=== PATIENT | female | born 1965 | race Two or more races ===

== ENCOUNTER 2018-01-20 20:57 | Emergency (ER) | payer SELFPAY ==
[~2018-01-20] VITALS: Ht 162.6 cm; Wt 68.9 kg
--- NOTE | 2018-01-20 21:41 | PHYS DOC ---
Past Medical History Past Medical History: No Pertinent History, Diverticulitis Past Surgical History: Appendectomy Alcohol Use: None Drug Use: None Adult General Chief Complaint Chief Complaint: ABDOMINAL PAIN HPI HPI 52-year-old female presents to ER with complaints of left-sided abdominal pain which started on Sunday. Patient denies any nausea or vomiting. Patient states she had episode of diarrhea on Sunday with no additional episodes. Patient reports she has had good appetite. Patient denies any abdominal bloating. Patient's LMP was in October and states she has gone through menopause. Patient reports she has been urinating without symptoms. Patient denies any recent travel. Patient denies any chest pain, palpitations, or shortness of air. Review of Systems Review of Systems Constitutional: Denies fever or chills. Reports fatigue Eyes: Denies change in visual acuity, redness, or eye pain [] HENT: Denies nasal congestion or sore throat [] Respiratory: Denies cough or shortness of breath [] Cardiovascular: Denies chest pain or palpitations GI: Reports left side upper and lower abdominal pain. Denies nausea or vomiting. Reports good appetite. Reports episode diarrhea on Sunday : Denies dysuria or hematuria. Denies any other urinary symptoms Musculoskeletal: Denies back/neck/extremity pain Integument: Denies rash or skin lesions. Denies swelling Neurologic: Denies headache, focal weakness or sensory changes [] All other systems were reviewed and found to be within normal limits, except as documented in this note. Current Medications Current Medications Current Medications Medications (Trade) Dose Ordered Sig/Bryn Start Time Stop Time Status Last Admin Dose Admin Fentanyl Citrate (Fentanyl 2ml Vial) 50 mcg 1X ONCE 01/20/18 22:30 01/20/18 22:31 DC 01/20/18 22:24 50 MCG Info (CONTRAST GIVEN -- Rx MONITORING) 1 each PRN DAILY PRN 01/20/18 23:30 01/21/18 01:00 DC Iohexol (Omnipaque 300 Mg/ml) 75 ml 1X ONCE 01/20/18 23:45 01/20/18 23:46 DC 01/20/18 23:38 75 ML Sodium Chloride 1,000 ml @ 1,000 mls/hr 1X ONCE 01/20/18 22:30 01/20/18 23:29 DC 01/20/18 22:23 1,000 MLS/HR Allergies Allergies Allergies Coded Allergies Type Severity Reaction Last Updated Verified No Known Drug Allergies 03/04/15 No Physical Exam Physical Exam Constitutional: Well developed, well nourished, mild distress with pt holding lt side abd, non-toxic appearance. [] HENT: Normocephalic, atraumatic, bilateral ears normal,mucous membranes pink/dry , no oral exudates, nose normal. [] Eyes: PERRLA, conjunctiva normal, no discharge. [] Neck: Normal range of motion, no tenderness, supple, no gross adenopathy Cardiovascular:Heart rate regular rhythm, no murmur [] Lungs & Thorax: Bilateral breath sounds clear to auscultation. Resp. equal/ nonlabored. Abdomen: Bowel sounds normal, soft/nondistended, diffuse tenderness in lt side abd- upper and lower quads with no focal area , no masses, no pulsatile masses. [] Skin: Warm, dry, no erythema, no rash. [] Back: No tenderness, no CVA tenderness. [] Extremities: No tenderness, no cyanosis, no clubbing, ROM intact, no edema. [] Neurologic: Alert and oriented X 3, normal motor function, normal sensory function, no focal deficits noted. [] Psychologic: Affect normal, judgement normal, mood normal. [] Current Patient Data Vital Signs Vital Signs Date Time Temp Pulse Resp B/P (MAP) Pulse Ox O2 Delivery O2 Flow Rate FiO2 01/20/18 23:30 69 15 94/58 (70) 97 Room Air 01/20/18 21:00 98.9 98.9 Lab Values Laboratory Tests Test 01/20/18 21:20 01/20/18 21:25 White Blood Count 8.8 x10^3/uL (4.0-11.0) Red Blood Count 4.22 x10^6/uL (3.50-5.40) Hemoglobin 13.4 g/dL (12.0-15.5) Hematocrit 38.8 % (36.0-47.0) Mean Corpuscular Volume 92 fL (79-100) Mean Corpuscular Hemoglobin 32 pg (25-35) Mean Corpuscular Hemoglobin Concent 35 g/dL (31-37) Red Cell Distribution Width 13.2 % (11.5-14.5) Platelet Count 203 x10^3/uL (140-400) Neutrophils (%) (Auto) 58 % (31-73) Lymphocytes (%) (Auto) 30 % (24-48) Monocytes (%) (Auto) 9 % (0-9) Eosinophils (%) (Auto) 2 % (0-3) Basophils (%) (Auto) 1 % (0-3) Neutrophils # (Auto) 5.1 x10^3uL (1.8-7.7) Lymphocytes # (Auto) 2.6 x10^3/uL (1.0-4.8) Monocytes # (Auto) 0.8 x10^3/uL (0.0-1.1) Eosinophils # (Auto) 0.2 x10^3/uL (0.0-0.7) Basophils # (Auto) 0.1 x10^3/uL (0.0-0.2) Sodium Level 140 mmol/L (136-145) Potassium Level 3.3 mmol/L (3.5-5.1) L Chloride Level 105 mmol/L (98-107) Carbon Dioxide Level 26 mmol/L (21-32) Anion Gap 9 (6-14) Blood Urea Nitrogen 10 mg/dL (7-20) Creatinine 0.8 mg/dL (0.6-1.0) Estimated GFR (Cockcroft-Gault) 75.0 BUN/Creatinine Ratio 13 (6-20) Glucose Level 150 mg/dL (70-99) H Calcium Level 8.9 mg/dL (8.5-10.1) Magnesium Level 1.9 mg/dL (1.8-2.4) Total Bilirubin 0.6 mg/dL (0.2-1.0) Aspartate Amino Transferase (AST) 14 U/L (15-37) L Alanine Aminotransferase (ALT) 21 U/L (14-59) Alkaline Phosphatase 71 U/L (46-116) Total Protein 7.4 g/dL (6.4-8.2) Albumin 3.6 g/dL (3.4-5.0) Albumin/Globulin Ratio 0.9 (1.0-1.7) L Lipase 276 U/L (73-393) Urine Collection Type Unknown Urine Color Yellow Urine Clarity Clear Urine pH 7.5 Urine Specific Viola 1.010 Urine Protein Negative mg/dL (NEG-TRACE) Urine Glucose (UA) Negative mg/dL (NEG) Urine Ketones (Stick) Negative mg/dL (NEG) Urine Blood Negative (NEG) Urine Nitrite Negative (NEG) Urine Bilirubin Negative (NEG) Urine Urobilinogen Dipstick 1.0 mg/dL (0.2 mg/dL) Urine Leukocyte Esterase Moderate (NEG) Urine RBC 0 /HPF (0-2) Urine WBC 5-10 /HPF (0-4) Urine Squamous Epithelial Cells Many /LPF Urine Bacteria 0 /HPF (0-FEW) Urine Test Negative (NEG) Laboratory Tests 01/20/18 21:20 Laboratory Tests 01/20/18 21:20 Microbiology 01/20/18 Urine Culture - Final, Complete 01/20/18 Urine Culture Result 1 (ROBERTO) - Final, Complete Microbiology 01/20/18 Urine Culture - Final, Complete 01/20/18 Urine Culture Result 1 (ROBERTO) - Final, Complete EKG EKG [] Radiology/Procedures Radiology/Procedures INDICATION: left lower abdomen pain that started Sunday
75ml Omni 300 COMPARISON: March 04, 2015 TECHNIQUE: Axial CT images obtained through the abdomen and pelvis with contrast. One or more of the following individualized dose reduction techniques were utilized for this examination: 1. Automated exposure control; 2. Adjustment of the mA and/or kV according to patient size; 3. Use of iterative reconstruction technique. FINDINGS: Linear opacity left lung base could be atelectasis or scarring. Abdominal aorta not aneurysmal. No intrahepatic bile duct dilation. Gallbladder is contracted. No peripancreatic fluid collection. Spleen unremarkable. No hydronephrosis. Minimal urine within urinary bladder. Colonic diverticulosis. Wall thickening of descending colon with adjacent edema of the fat. No dilated loops of bowel suggest obstruction. Degenerative changes of spine. Pars defects L5. IMPRESSION: 1. Wall thickening of the descending colon with adjacent edema to the fat. Could be from diverticulitis but if the patient has not had a recent colonoscopy would consider obtaining a follow-up CT or colonoscopy after treatment to ensure this resolves to exclude neoplastic causes Electronically signed by: Adam Harmon MD (01/20/2018 11:58 PM) [facility] DICTATED and SIGNED BY: ADAM HARMON MD DATE: 01/20/18 3338 Course & Med Decision Making Course & Med Decision Making Pertinent Labs and Imaging studies reviewed. (See chart for details) 1225: Discussed test results with pt and her son- again translation phone was advised for communication and pt did not want to use phone and wanted her son to translate. Discussed again lab results NL with UA unremarkable. UCG was neg. CT results reported "wall thickening of the descending colon with adjacent edema to the fat. Could be from diverticulitis". When this was discussed pt reported that she had diverticulitis a couple months ago which she had not mentioned during ROS/past medical hx. She reports she has hydrocodone for pain at home. Discussed need for GI f/u for further eval/tx and possible colonoscopy. With pt's continued c/o lt side abd pain admission was offered- she is not wanting to be admitted with plans to f/u with her PCP. Will give Rxs for Cipro, Flagyl, and Bentyl. Education provided on s&s to return to ER for- advised pt if sxs worsen she should return. At time of discussion pt is in no visible distress/nontoxic in appearance reporting abd pain had improved with txs received. Discharge instructions discussed- will provide GI referral info on discharge paperwork. Dragon Disclaimer Dragon Disclaimer This electronic medical record was generated, in whole or in part, using a voice recognition dictation system. Departure Departure Impression: Primary Impression: Diverticulitis Additional Impression: Abdominal pain Disposition: 01 HOME, SELF-CARE Condition: STABLE Referrals: NO PCP (PCP) ORIN CAMARGO MD if symptoms persist this is an option for gastrointestinal follow-up Patient Instructions: Abdominal Pain, Diverticulitis Scripts Dicyclomine Hcl (DICYCLOMINE HCL) 10 Mg Capsule 10 MG PO QID, #12 CAP 0 Refills Prov: ALIA ORO APRN 01/21/18 Ciprofloxacin Hcl (CIPRO) 500 Mg Tablet 1 TAB PO BID, #14 TAB 0 Refills Prov: ALIA ORO APRN 01/21/18 Metronidazole (FLAGYL) 500 Mg Tablet 500 MG PO BID for 7 Days, #14 TAB 0 Refills Prov: ALIA ORO APRN 01/21/18 Problem Qualifiers ALIA ORO APRN Jan 20, 2018 21:41
[2018-01-20 22:11] LABS: BASO # 0.1 x10^3/uL (0.0-0.2); BASO % 1 % (0-3); EOS # 0.2 x10^3/uL (0.0-0.7); EOS % 2 % (0-3); HEMATOCRIT 38.8 % (36.0-47.0); HEMOGLOBIN 13.4 g/dL (12.0-15.5); LYMPH # 2.6 x10^3/uL (1.0-4.8); LYMPH % 30 % (24-48); MEAN CORPUSCULAR HEMOGLOBIN 32 pg (25-35); MEAN CORPUSCULAR HGB CONC 35 g/dL (31-37); MEAN CORPUSCULAR VOLUME 92 fL (79-100); MONO # 0.8 x10^3/uL (0.0-1.1); MONO % 9 % (0-9); NEUT # 5.1 x10^3uL (1.8-7.7); NEUT % 58 % (31-73); PLATELET COUNT 203 x10^3/uL (140-400); RED BLOOD COUNT 4.22 x10^6/uL (3.50-5.40); RED CELL DISTRIBUTION WIDTH 13.2 % (11.5-14.5); WHITE BLOOD COUNT 8.8 x10^3/uL (4.0-11.0)
[2018-01-20 22:13] LABS: BILIRUBIN,URINE NEGATIVE (NEG); CLARITY,URINE CLEAR; COLOR,URINE YELLOW; NITRITE,URINE NEGATIVE (NEG); PH,URINE 7.5; PROTEIN,URINE NEGATIVE (NEG-TRACE)
[2018-01-20 22:19] LABS: CALCIUM 8.9 mg/dL (8.5-10.1); CREATININE 0.8 mg/dL (0.6-1.0); POTASSIUM 3.3 mmol/L (3.5-5.1)
[2018-01-20 22:22] LABS: BACTERIA,URINE 0 /HPF (0-FEW); RBC,URINE 0 /HPF (0-2); SQUAMOUS EPITHELIAL CELL,UR MANY /LPF; U PREG PATIENT NEGATIVE (NEG)
[2018-01-20 22:25] LABS: ALBUMIN 3.6 g/dL (3.4-5.0); ALBUMIN/GLOBULIN RATIO 0.9 (1.0-1.7); MAGNESIUM 1.9 mg/dL (1.8-2.4); TOTAL BILIRUBIN 0.6 mg/dL (0.2-1.0); TOTAL PROTEIN 7.4 g/dL (6.4-8.2)
[2018-01-20] MEDS ORDERED: IV NORMAL SALINE 1000ML BAG 1,000 ML IV ONE (22:30)
[2018-01-20] MEDS ORDERED: fentaNYL PF VIAL 100 MCG/2 ML VIAL IV ONE (22:30)
[2018-01-20 23:30] VITALS: BP 94/58
[2018-01-20] MEDS ORDERED: CONTRAST GIVEN. MC PRN (23:30)
[2018-01-20] MEDS ORDERED: IOHEXOL 300 MG/ML 100ML VIAL. IV ONE (23:45)
--- NOTE | 2018-01-21 00:02 | RAD ---
INDICATION: left lower abdomen pain that started Sunday
75ml Omni 300 COMPARISON: March 04, 2015 TECHNIQUE: Axial CT images obtained through the abdomen and pelvis with contrast. One or more of the following individualized dose reduction techniques were utilized for this examination: 1. Automated exposure control; 2. Adjustment of the mA and/or kV according to patient size; 3. Use of iterative reconstruction technique. FINDINGS: Linear opacity left lung base could be atelectasis or scarring. Abdominal aorta not aneurysmal. No intrahepatic bile duct dilation. Gallbladder is contracted. No peripancreatic fluid collection. Spleen unremarkable. No hydronephrosis. Minimal urine within urinary bladder. Colonic diverticulosis. Wall thickening of descending colon with adjacent edema of the fat. No dilated loops of bowel suggest obstruction. Degenerative changes of spine. Pars defects L5. IMPRESSION: 1. Wall thickening of the descending colon with adjacent edema to the fat. Could be from diverticulitis but if the patient has not had a recent colonoscopy would consider obtaining a follow-up CT or colonoscopy after treatment to ensure this resolves to exclude neoplastic causes Electronically signed by: Fausto Harmon MD (01/20/2018 11:58 PM) [facility]
[2018-01-21] MEDS ORDERED: CIPR500T94 PO (00:37)
[2018-01-21] MEDS ORDERED: METR500T PO (00:37)
[2018-01-21] MEDS ORDERED: DICY10CA3 PO (00:39)
== END 2018-01-21 01:00 | disposition home or self-care (01) ==
LOC: ER 20:57
DX: K57.32 Diverticulitis of large intestine without perforation or abscess without bleeding (principal); N32.89 Other specified disorders of bladder; Z90.89 Acquired absence of other organs
CPT/HCPCS: 36415; 74177; 80053; 81001; 81025; 83690; 83735; 85025; 87086; 96374; 99285; J3010; J7030; Q9967